=== PATIENT | female | born 2000 | race American Indian/Alaskan Native ===

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

== ENCOUNTER 2021-03-13 15:42 | Outpatient (CLI) | payer MEDICAID ==
[2021-03-13 16:59] VITALS: BP 121/70
== END 2021-03-13 18:06 | disposition home or self-care (01) ==
LOC: TRG 15:42 → LD 15:42 → TRG 18:06
PROVIDERS: ATTEND Obstetrics & Gynecology
DX: Z34.93 Encounter for supervision of normal pregnancy, unspecified, third trimester (principal); Z3A.38 38 weeks gestation of pregnancy
CPT/HCPCS: 59025; Q0177

== ENCOUNTER 2021-03-17 02:55 | Outpatient (CLI) | payer MEDICAID ==
[2021-03-17 03:14] VITALS: BP 111/66
== END 2021-03-17 04:45 | disposition home or self-care (01) ==
LOC: TRG 02:55 → APU 02:56 → TRG 04:45
PROVIDERS: ATTEND Obstetrics & Gynecology
DX: Z34.93 Encounter for supervision of normal pregnancy, unspecified, third trimester (principal); Z3A.39 39 weeks gestation of pregnancy
CPT/HCPCS: 36415; 59025; 84112; Q0177

== ENCOUNTER 2021-04-06 15:57 | Inpatient (IN) | payer MEDICAID ==
[2021-04-06] MEDS ORDERED: ePHEDrine SULFATE 50 MG/1 ML INJ IV PRN (16:53)
[2021-04-06] MEDS ORDERED: CARBOPROST TROMETHAMINE 250 MCG/1 ML INJ IM PRN (16:53)
[2021-04-06] MEDS ORDERED: LIDOCAINE (2%) 20 MG/1 ML VIAL 20 ML MDV INFILTRATI ONE (16:53)
[2021-04-06] MEDS ORDERED: MINERAL OIL 30 ML ORAL LIQD PO PRN (16:53)
[2021-04-06] MEDS ORDERED: ONDANSETRON 4 MG/2 ML INJ IV PRN ×3 (16:53→21:58)
[2021-04-06] MEDS ORDERED: LOPERAMIDE 2 MG CAP PO PRN (16:53)
[2021-04-06] MEDS ORDERED: METHYLERGONOVINE MALEATE 0.2 MG/ML VIAL IM PRN (16:53)
[2021-04-06] MEDS ORDERED: TERBUTALINE 1 MG/1 ML INJ SUB-Q PRN (16:53)
[2021-04-06] MEDS ORDERED: miSOPROStol 200 MCG TAB PR PRN (16:53)
[2021-04-06] MEDS ORDERED: OXYTOCIN 10 UNIT/1 ML INJ IM PRN (16:53)
[2021-04-06] MEDS ORDERED: LACTATED RINGERS 1,000 ML IV SCH ×2 (17:00→18:30)
[2021-04-06] MEDS ORDERED: OXYTOCIN DRIP 30 UNITS/500 ML BAG IV SCH ×4 (17:00→21:58)
[2021-04-06 17:22] LABS: Hematocrit 35.5 % (30.3-42.9); Hemoglobin 11.9 gm/dl (10.1-14.3); Mean Corpuscular HGB Conc 34 % (30-34); Mean Corpuscular Volume 76 fl (79-97); Platelet Count 196 K/mm3 (140-440); Red Blood Count 4.69 M/mm3 (3.65-5.03)
--- NOTE | 2021-04-06 17:27 | History and Physical Report ---
History of Present Illness Date of examination: 04/06/21 Date of admission: 04/06/21 @170 Chief complaint: contractions History of present illness: Pt @ 39.3 weeks EGA presents to triage with c/o contractions that started around noon. Pt reports ctx q5mins since then; denies LOF and VB. Reports +FM. Pt received care with our office. Records reviewed; Pt with +trich result in office on 03/06/21 and reports she took treatment at time as prescribed. Reports H/O sickle cell trait and Rh negative status. Pt reports receiving rhogam as appropriate in . EDC Confirmation: 04/10/2021 Past History : 1 Term Births: 0 Premature Births: 0 Living Children: 0 Para: 0 Mult. Births: 0 Prev : 0 Aborta: 0 Elect. Ab: 0 Spont. Ab: 0 Ectopics: 0 Past Medical History: Reviewed history and no changes required: Sickle cell trait Past Surgical History: Reviewed history and no changes required: negative Past Medical History Anesthesia Complications: negative Anemia: negative Autoimmune Disorder: negative Bleeding Disorder: negative Blood Transfusions: negative Breast Disease: negative Diabetes: negative Heart Disease: negative Hypertension: negative Hepatitis/Liver Disease: negative Kidney Disease/UTI: negative Neurologic/Epilepsy/Migraines: negative Phlebitis/Varicosities: negative Psychiatric: negative Pulmonary Disease/Asthma: negative Thyroid Disease: negative Hospitalizations: negative Surgery (Non-senior brand manager): negative Abnormal PAP: negative PAWAN Exposure: negative Infertility: negative Uterine Anomaly: negative Uterine Surgery (not C/S): negative Other Gynecologic Problems: negative Family Hx: None Infection History Hx of STD: none HIV Risk Eval: no Hepatitis B Risk Eval: low risk Personal hx. of genital herpes: no Partner hx. of genital herpes: no Rash, Viral, or Febrile illness since last LMP? no Varicella/Chicken Pox Status: No TB Risk: no Genetic History Congenital Heart Defect: Mom: no Dad: no Zoila Disease: Mom: no Dad: no Thalassemia Mom: no Dad: no Neural Tube Defect Mom: no Dad: no Down's Syndrome Mom: no Dad: no Arturo-Sachs Mom: no Dad: no Sickle Cell Disease/Trait Mom: yes Dad: no Comments: Mother, patient Hemophilia Mom: no Dad: no Muscular Dystrophy Mom: no Dad: no Cystic Fibrosis Mom: no Dad: no Marlin Chorea Mom: no Dad: no Mental Retardation Mom: no Dad: no Fragile X Mom: no Dad: no Other Genetic/Chromosomal Disorder Mom: no Dad: no Child w/other defect Mom: no Dad: no Enviromental Exposures Enviromental Exposures Reviewed Xray Exposure: no Medication, drug, or alcohol use since LMP: no Chemical/Other Exposure: no Exposure to Cat Liter: no Hx of Parvovirus (Fifth Disease): no Occupational Exposure to Children: none Active Medications: None Current Allergies (reviewed today): No known allergies Past History Past Medical History: other (see HPI) Past Surgical History: other (see HPI) HEALTH CARE RECRUITER History: other (see HPI) Family/Genetic History: other (see HPI) Social history: other (see HPI) - Obstetrical History Expected Date of Delivery: 04/10/21 Actual Gestation: 39 Week(s) 3 Day(s) : 1 Para: 0 Hx # Term Pregnancies: 0 Number of Pregnancies: 0 Spontaneous Abortions: 0 Induced : 0 Number of Living Children: 0 Medications and Allergies Allergies Allergy/AdvReac Type Severity Reaction Status Date / Time No Known Allergies Allergy Verified 12/20/20 13:53 Active Meds: Active Medications Carboprost Tromethamine (Carboprost Tromethamine 250 Mcg/1 Ml Inj) 250 mcg IM ONCE PRN PRN Reason: Uterine Bleeding Ephedrine Sulfate (Ephedrine Sulfate 50 Mg/1 Ml Inj) 10 mg IV Q2M PRN PRN Reason: Hypotension Oxytocin/Sodium Chloride (Pitocin/Ns 30 Unit/500ml) 30 units in 500 mls @ 2 mls/hr IV TITR ALLEN; Protocol Lactated Ringer's (Lactated Ringers) 1,000 mls @ 125 mls/hr IV DIRECT ALLEN Oxytocin/Sodium Chloride (Pitocin/Ns 30 Unit/500ml) 30 units in 500 mls @ 40 mls/hr IV TITR ALLEN; Protocol Penicillin G Potassium 5 mil. (units/ Sodium Chloride) 50 mls @ 100 mls/hr IV ONCE ONE; Protocol Stop: 04/06/21 17:22 Penicillin G Potassium 2.5 mil (.units/ Sodium Chloride) 50 mls @ 100 mls/hr IV Q4H ALLEN; Protocol Lidocaine (Lidocaine (2%) 20 Mg/1 Ml Vial 20 Ml Mdv) 20 ml INFILTRATI ONCE ONE Stop: 04/06/21 16:54 Loperamide HCl (Loperamide 2 Mg Cap) 2 mg PO ONCE PRN PRN Reason: give with Hemabate Methylergonovine Maleate (Methylergonovine Maleate 0.2 Mg/Ml Vial) 0.2 mg IM ONCE PRN PRN Reason: Uterine Bleeding Mineral Oil (Mineral Oil 30 Ml Oral Liqd) 30 ml PO QHS PRN PRN Reason: Constipation Misoprostol (Misoprostol 200 Mcg Tab) [address] ONCE PRN PRN Reason: Uterine Bleeding Ondansetron HCl (Ondansetron 4 Mg/2 Ml Inj) 4 mg IV Q8H PRN PRN Reason: Nausea And Vomiting Oxytocin (Oxytocin 10 Unit/1 Ml Inj) 10 unit IM ONCE PRN PRN Reason: Uterine Bleeding Terbutaline Sulfate (Terbutaline 1 Mg/1 Ml Inj) 0.25 mg SUB-Q ONCE PRN PRN Reason: Hyperstimulation/Hypertonicity Review of Systems All systems: negative Genitourinary: contractions - Vital Signs Vital signs: Vital Signs Pulse Pulse Ox 108 H 97 04/06/21 16:20 04/06/21 16:20 Temp Pulse Resp BP Pulse Ox 98.2 F 120 H 20 126/60 99 04/06/21 16:23 04/06/21 17:00 04/06/21 16:23 04/06/21 16:52 04/06/21 17:00 - Physical Exam Breasts: Positive: deferred Cardiovascular: Regular rate Lungs: Positive: Normal air movement Abdomen: Positive: normal appearance, soft Genitourinary (Female): Positive: normal external genitalia, normal perenium Vulva: both: normal Vagina: Positive: normal moisture Uterus: Positive: normal size, normal contour Anus/Rectum: Positive: normal perianal skin Extremities: Positive: normal - Obstetrical FHR: category 2 Uterine Contraction Monitor Mode: External Uterine Contraction Pattern: Regular Uterine Tone Measurement Phase: Contraction Uterine Contraction Intensity: Moderate Results All other labs normal. Patient: JAY BENITES ID: [id number] Note: All result statuses are Final unless otherwise noted. Tests: (1) Profile I ([id number]) Order Note: Clinical Information: SRC:UR HBsAg Screen Negative Negative *1 RPR Non Reactive Non Reactive *2 Rubella Antibodies, IgG 11.50 index Immune >0.99 *3 Non-immune <0.90 Equivocal 0.90 - 0.99 Immune >0.99 ABO Grouping B *4 Rh Factor Negative *5 Please note: Prior records for this patient's ABO / Rh type are not available for additional verification. Antibody Screen Negative Negative *6 WBC 7.6 x10E3/uL 3.4-10.8 *7 RBC [L] 3.74 x10E6/uL 3.77-5.28 *8 Hemoglobin [L] 8.7 g/dL 11.1-15.9 *9 Hematocrit [L] 27.8 % 34.0-46.6 *10 MCV [L] 74 fL 79-97 *11 MCH [L] 23.3 pg 26.6-33.0 *12 MCHC [L] 31.3 g/dL 31.5-35.7 *13 RDW [H] 20.0 % 11.7-15.4 *14 Platelets 194 x10E3/uL 150-450 *15 Neutrophils 75 % Not Estab. *16 Lymphs 16 % Not Estab. *17 Monocytes 8 % Not Estab. *18 Eos 0 % Not Estab. *19 Basos 0 % Not Estab. *20 ! Immature Cells <No Reported Value> *21 Neutrophils (Absolute) 5.7 x10E3/uL 1.4-7.0 *22 Lymphs (Absolute) 1.2 x10E3/uL 0.7-3.1 *23 Monocytes(Absolute) 0.6 x10E3/uL 0.1-0.9 *24 Eos (Absolute) 0.0 x10E3/uL 0.0-0.4 *25 Baso (Absolute) 0.0 x10E3/uL 0.0-0.2 *26 ! Immature Granulocytes 1 % Not Estab. *27 ! Immature Grans (Abs) 0.0 x10E3/uL 0.0-0.1 *28 ! NRBC <No Reported Value> *29 Hematology Comments: <No Reported Value> *30 Tests: (2) AFP Tetra ([id number]) ! Results Report *31 ! Test Results: *Screen Negative* *32 ! Gest. Age on Collection Date 16.9 WEEKS *33 ! Gestat. Age Based On Ultrasound *34 16.9 on 10/30/2020 ! M[age] *35 ! Race Black *36 ! Weight 148 lbs *37 ! Insulin Dep Diabetes No *38 ! Multiple Gestation No *39 ! AFP Value 67.5 ng/mL *40 ! AFP MoM 1.62 *41 ! hCG Value 89395 mIU/mL *42 ! hCG MoM 0.47 *43 ! uE3 Value 1.32 ng/mL *44 ! uE3 MoM 1.13 *45 ! DANICA Value 185.90 pg/mL *46 ! DANICA MoM 1.13 *47 ! OSBR Risk 1 IN 3989 *48 ! DSR (Second Trimester) 1 [place] [address] *49 ! DSR (By Age) 1 IN 1169 *50 ! T18 Risk Not increased *51 ! T18 (By Age) 1:4553 *52 ! Interpretation NL42 *53 Interpretation: Screen Negative This result is screen negative for OSB, Down Syndrome and Trisomy 18. The AFP MoM and patient specific risks calculated are based on the gestational age and the clinical information provided. This test can identify up to 80% of open neural tube defects. Closed neural tube defects and some open defects may not be detected by this test. The combination of maternal age, AFP, hCG, uE3, and DANICA identifies 75-80% of Down Syndrome. The combination of maternal age, AFP, hCG and uE3 identifies 60% of Trisomy 18 pregnancies. The [place] recommends amniocentesis be offered to women age 35 and older. Recalculations are not recommended when gestational dating by LMP and ultrasound are within 10 days. ! Comments: [facility] *54 Yadira Cox, Ph.D., [facility] Director References: Available Upon Request. Multiples Of Median Cutoffs Abbreviation Definitions For AFP Elevations IDD- Insulin Dep Diabetes Nevarez 2.5 Black 2.8 OSBR- Open Spina Bifida IDD 2.0 Twins 4.5 Risk DSR Cutoff 1:270 DSR- Down Syndrome Risk T18 Cutoff 1:100 T18- Trisomy 18 Down Syndrome and Trisomy 18 screening are considered Investigational For further inquiries contact [employer] at [phone]. Tests: (3) HIV Ag/Ab with Reflex ([id number]) HIV Screen 4th Generation wRfx Non Reactive Non Reactive *55 Tests: (4) Varicella-Zoster V Ab, IgG ([id number]) ! Varicella Zoster IgG 1554 index Immune >165 *56 Negative <135 Equivocal 135 - 165 Positive >165 A positive result generally indicates exposure to the pathogen or administration of specific immunoglobulins, but it is not indication of active infection or stage of disease. Tests: (5) Varicella-Zoster Ab, IgM ([id number]) ! Varicella-Zoster Ab, IgM <0.91 index 0.00-0.90 *57 Negative <0.91 Borderline 0.91 - 1.09 Positive >1.09 Tests: (6) HCV Ab w/Rflx to Verification ([id number]) ! HCV Ab <0.1 s/co ratio 0.0-0.9 *58 Tests: (7) Comment: ([id number]) ! Comment: [facility] *59 Non reactive HCV antibody screen is consistent with no HCV infection, unless recent infection is suspected or other evidence exists to indicate HCV infection. Effective December 09, 2020 HCV Ab w/Rflx to Verification will be made non-orderable. [facility] offers order code [id number] HCV Antibody reflex to KATHY. Tests: (8) Urine Culture, Routine ([id number]) Urine Culture, Routine Final report *60 Tests: (9) Result ([id number]) ! Result 1 No growth *[address] Lawrence made aware, FHT's with decelerations; CAT 2 with moderate variability. SVE 3cm/30%/-4 intact BOW. Orders placed for admission to labor and delivery unit. - Patient Problems (1) Positive GBS test Current Visit: Yes Status: Acute Plan to address problem: GBS treatment ordered per protocol (2) Active labor at term Current Visit: Yes Status: Acute Plan to address problem: continuous monitoring pt may have epidural PRN anticipate (3) 39 weeks gestation of Current Visit: Yes Status: Acute (4) Rh negative status during Current Visit: Yes Status: Acute Plan to address problem: will order cord blood sample testing and rhogam administration PP (5) Sickle cell trait Current Visit: Yes Status: Acute
[2021-04-06 17:28] LABS: Red Cell Distribution Width 21.2 % (13.2-15.2)
[2021-04-06] MEDS ORDERED: PENICILLIN G POTASSIUM 5 MIL.UNITS in SODIUM CHLORIDE 0.9% 50 ML IV ONE (18:00)
[2021-04-06] MEDS ORDERED: KETOROLAC 30 MG/1 ML INJ ONE (18:01)
[2021-04-06] MEDS ORDERED: ONDANSETRON 4 MG/2 ML INJ ONE (18:01)
[2021-04-06] MEDS ORDERED: dexAMETHasone 20 MG/5 ML VIAL ONE (18:01)
[2021-04-06] MEDS ORDERED: BUPIVACAINE/PF (0.5%) 5 MG/1 ML 30 ML VIAL INFILTRATI ONE (18:01)
[2021-04-06] MEDS ORDERED: PROMETHAZINE 25 MG TAB PO PRN (18:15)
[2021-04-06] MEDS ORDERED: PROMETHAZINE 25 MG RECT SUPP PR PRN (18:15)
[2021-04-06] MEDS ORDERED: NalbUPHINE 10 MG/1 ML INJ IV PRN (18:15)
[2021-04-06] MEDS ORDERED: HYDROmorphone 1 MG/1 ML INJ IV PRN (18:15)
[2021-04-06] MEDS ORDERED: diphenhydrAMINE 50 MG/ML VIAL IV PRN (18:15)
[2021-04-06] MEDS ORDERED: NALOXONE 0.4 MG/1 ML INJ IV PRN ×2 (18:15→21:58)
--- NOTE | 2021-04-06 18:15 | Anesthesia Consultation ---
Anesthesia Consult and Med Hx Date of service: 04/06/21 - Airway Anesthetic Teeth Evaluation: Good ROM Head & Neck: Adequate Mental/Hyoid Distance: Adequate Mallampati Class: Class II Intubation Access Assessment: Probably Good - Pulmonary Exam CTA: Yes - Cardiac Exam Cardiac Exam: RRR - Pre-Operative Health Status ASA Pre-Surgery Classification: ASA2 Proposed Anesthetic Plan: Spinal Nerve Block: TAP - Pulmonary Hx Smoking: No Hx Asthma: No Hx Sleep Apnea: No - Cardiovascular System Hx Hypertension: No Hx Heart Attack/AMI: No Hx Angina: No - Central Nervous System Hx Seizures: No Hx Psychiatric Problems: No - Gastrointestinal Hx Gastroesophageal Reflux Disease: No - Endocrine Hx Renal Disease: No Hx Liver Disease: No Hx Insulin Dependent Diabetes: No Hx Non-Insulin Dependent Diabetes: No Hx Hypothyroidism: No Hx Hyperthyroidism: No - Hematic Hx Anemia: No Hx Sickle Cell Disease: Yes (Trait) - Other Systems Hx Alcohol Use: No
--- NOTE | 2021-04-06 18:15 | Anesthesia Day of Surgery ---
Anesthesia Day of Surgery - Day of Surgery Patient Examined: Yes Patient H&P Reviewed: Yes Patient is NPO: Yes Beta Blockers: No Cardiac Clearance: No Pulmonary Clearance: No [place]'s Test: N/A
[2021-04-06] MEDS ORDERED: BICITRA ORAL LIQD 30ML ONE (18:21)
[2021-04-06] MEDS ORDERED: FAMOTIDINE 20 MG/2 ML INJ IV ONE ×2 (18:22→18:25)
[2021-04-06] MEDS ORDERED: ceFAZolin/Water 2 GM/20 ML 2 GM/20 ML SYRINGE IV ONE (18:22)
[2021-04-06] MEDS ORDERED: METOCLOPRAMIDE 10 MG/2 ML INJ ONE (18:22)
[2021-04-06] MEDS ORDERED: METOCLOPRAMIDE 10 MG/2 ML INJ IV ONE (18:25)
--- NOTE | 2021-04-06 18:36 | Progress Note ---
Assessment and Plan - Patient Problems (1) 39 weeks gestation of Current Visit: Yes Status: Acute (2) Active labor at term Current Visit: Yes Status: Acute (3) Positive GBS test Current Visit: Yes Status: Acute (4) Rh negative status during Current Visit: Yes Status: Acute (5) Sickle cell trait Current Visit: Yes Status: Acute (6) Non-reassuring electronic monitoring tracing Current Visit: Yes Status: Acute Plan to address problem: Per RN repetitive late decels remote for delivery and minimal contractions. Diagnosis explained, LEIF vs c/s discussed. Risk associated with delivery were discussed, including but not limited to, bleeding that may require blood transfusion, infection that may be life threatening, injury to adjacent organs specifically bowel or bladder that may require further surgeries, or major vascular injury. She was also informed that when she has had a delivery she may require repeat deliveries for all subsequent pregnancies. She was informed with LEIF baby may develop brain damage if she continues to LEIF and lates persists. Questions were encouraged and answered. Patient voiced understanding and desires to proceed with delivery. Consents were reviewed and signed Subjective - Subjective Date of service: 04/06/21 Patient reports: no new complaints Objective - Vital Signs Vital Signs: Vital Signs - 12hr 04/06/21 04/06/21 04/06/21 16:20 16:21 16:23 Temperature 98.2 F Pulse Rate 108 H 111 H Respiratory 20 Rate Blood Pressure 133/83 Blood Pressure [Left] O2 Sat by Pulse 97 Oximetry 04/06/21 04/06/21 04/06/21 16:25 16:30 16:35 Temperature Pulse Rate 108 H 107 H 157 H Respiratory Rate Blood Pressure Blood Pressure [Left] O2 Sat by Pulse 98 97 99 Oximetry 04/06/21 04/06/21 04/06/21 16:40 16:45 16:50 Temperature Pulse Rate 109 H 113 H 120 H Respiratory Rate Blood Pressure Blood Pressure [Left] O2 Sat by Pulse 97 95 97 Oximetry 04/06/21 04/06/21 04/06/21 16:52 16:55 17:00 Temperature Pulse Rate 109 H 67 120 H Respiratory Rate Blood Pressure 126/60 Blood Pressure [Left] O2 Sat by Pulse 93 99 Oximetry 04/06/21 04/06/21 04/06/21 17:05 17:07 17:10 Temperature Pulse Rate 115 H 111 H 113 H Respiratory Rate Blood Pressure Blood Pressure [Left] O2 Sat by Pulse 98 93 100 Oximetry 04/06/21 04/06/21 04/06/21 17:15 17:36 17:37 Temperature Pulse Rate 104 H 110 H 107 H Respiratory Rate Blood Pressure 114/71 Blood Pressure [Left] O2 Sat by Pulse 97 96 Oximetry 04/06/21 04/06/21 04/06/21 17:39 17:41 17:42 Temperature 97.9 F Pulse Rate 111 H 107 H 111 H Respiratory 15 Rate Blood Pressure Blood Pressure 114/71 [Left] O2 Sat by Pulse 93 96 95 Oximetry 04/06/21 04/06/21 04/06/21 17:46 17:51 17:56 Temperature Pulse Rate 107 H 99 H 97 H Respiratory Rate Blood Pressure Blood Pressure [Left] O2 Sat by Pulse 98 97 99 Oximetry 04/06/21 04/06/21 04/06/21 18:01 18:05 18:06 Temperature Pulse Rate 101 H 103 H 100 H Respiratory Rate Blood Pressure Blood Pressure [Left] O2 Sat by Pulse 100 86 100 Oximetry 04/06/21 04/06/21 04/06/21 18:11 18:14 18:16 Temperature Pulse Rate 98 H 153 H 103 H Respiratory Rate Blood Pressure Blood Pressure [Left] O2 Sat by Pulse 99 66 L 98 Oximetry 04/06/21 04/06/21 18:20 18:21 Temperature Pulse Rate 96 H 104 H Respiratory Rate Blood Pressure Blood Pressure [Left] O2 Sat by Pulse 90 97 Oximetry - Labs Labs: Abnormal Labs 04/06/21 16:45 WBC 11.5 H MCV 76 L MCH 25 L RDW 21.2 H Laboratory Results - last 24 hr 04/06/21 04/06/21 16:45 16:45 WBC 11.5 H RBC 4.69 Hgb 11.9 Hct 35.5 MCV 76 L MCH 25 L MCHC 34 RDW 21.2 H Plt Count 196 Syphilis IgG Antibody Nonreactive
[2021-04-06] MEDS ORDERED: PHENYLEPHRINE/NS 1,000 MCG/10 ML SYRINGE (OR USE) IV ONE (19:10)
[2021-04-06] MEDS ORDERED: BICITRA ORAL LIQD 30ML PO ONE (19:25)
--- NOTE | 2021-04-06 19:43 | Operative Report ---
Operative Report Operative Report: Date of operation: 04/06/2021 Pre-operative diagnosis: 1. 38 weeks gestational age 2. Active labor 3. Nonreassuring heart rate tracing 4. BMI 28.7 kg/m 5. Rh- 6. Positive sickle cell trait 7. GBS positive Post-operative diagnosis: 1. 38 weeks gestational age 2. Active labor 3. Nonreassuring heart rate tracing 4. BMI 28.7 kg/m 5. Rh- 6. Positive sickle cell trait 7. GBS positive 8. Meconium stained fluid Procedure name(s): Primary low transverse uterine incision with vacuu m assistance. Surgeon: Roselia Lawrence MD Casting Machine Adjuster: Ambreen Carmen CNM Anesthesia: Spinal EBL: 500 mL Urine output: 150 mL of clear urine out at the end of the procedure Fluids: 700 mL Findings: Liveborn male weight 6 Lbs. 14 oz. Apgars of 6 and 8 at one and 5 minutes Indications: [] Procedure: Patient was taking to the operating room. Spinal anesthesia was placed. Patient was then prepped and draped in the usual sterile fashion Timeout was performed. Once an appropriate level of anesthesia was noted, a Pfannenstiel incision was made and extended the fascia which was incised and extended lateral direction. The overlying fascia was sharply dissected away from the underlying rectus muscles in the superior inferior direction. The midline was entered bluntly. Bladder blade was placed. Vesicouterine fold was incised with blunt dissection bladder flap was created. A transverse incision was made in the lower uterine segment and extended superolateral direction with finger fractionation. Meconium thick fluid was noted. Infant was delivered from the cephalic asynclitic position, with 1 application of the vacuum at 50 mm of pressure. Infant grimaced with bulb suction and had excellent tone on the field. Mouth and nose bulb suctioned. Cord was doubly clamped and cut was given to the resuscitation team present. Placenta was delivered. The uterus was exteriorized and cleaned of any further placental tissue and products of conception. Uterine incision was approximated using 0 Vicryl in a running interlocking stitch followed by further suture of 0 Vicryl in an imbricating fashion. When hemostasis was noted the uterus was allowed back in the pelvic cavity. Pelvis was irrigated with warm normal saline. Once he mostasis was noted the rectus muscles were approximated using 0 Vicryl interrupted simple stitches 3. Once hemostasis was noted the fascia was approximated using 0 Vicryl simple running stitch. The incision was irrigated with warm saline, once hemostasis as noted, the subcuticular adipose tissue was reapproximated using 3-0 Vicryl in a simple running fashion. Skin was approximated using 4-0 Vicryl on a Kali needle in a subcuticular manner. Counts were correct x3. Patient tolerated the procedure well, she was taken to recovery room in stable condition.
--- NOTE | 2021-04-06 19:55 | Progress Note ---
Spinal Anesthesia Block - Spinal Anesthesia Block Start Time: 18:32 Stop Time: 18:42 Performed by:: JOSÉ MANUEL MALDONADO Procedure: Spinal anesthesia block is being performed for [C/S]. H&P, labs have been reviewed. Patient's questions and concerns have been answered. Informed consent has been performed. Timeout has was performed. Patient in sitting position on side of bed. Sterile prep and drape was performed. 3 mL 1% lidocaine skin wheal at L [3]-L [4]. Needle introducer advanced. 25-gauge spinal needle advanced, [+] CSF [-] blood. [Marcaine 10mg and Precedex 5mcg] Spinal dose was given. All needles removed. Patient tolerated procedure well.
--- NOTE | 2021-04-06 19:55 | Progress Note ---
Regional Anesthesia Block - Regional Anesthesia Block Start Time: 19:43 Stop Time: 19:50 Performed By:: JOSÉ MANUEL MALDONADO Procedure: Patient consented for TAP block for post surgical pain management. Patient identified, monitors placed, and time out performed. Mid axillary TAP identified bilaterally via ultrasound. Skin prepped bilaterally with [chlorhexidine] and [20g stimuplex] needle advanced to the TAP. 30ml [Marcaine 0.25% with 25mcg Precedex and Decadron 5mg] injected under ultrasound guidance on the [left] side. 30ml [Marcaine 0.25% with 25mcg Precedex and Decadron 5mg] injected under ultrasound guidance on the [right] side. Negative aspiration every 5mL, Patient tolerated the procedure well. No apparent complications seen.
[2021-04-06] MEDS ORDERED: MAGNESIUM HYDROXIDE (MOM) ORAL LIQD UDC PO PRN (21:58)
[2021-04-06] MEDS ORDERED: LANOLIN/ZINC/DIMETHICONE (LANSINOH) 7 GM TP PRN (21:58)
[2021-04-06] MEDS ORDERED: MORPHINE 2 MG/1 ML INJ IV PRN (21:58)
[2021-04-06] MEDS ORDERED: traMADol 50 MG TAB PO PRN (21:58)
[2021-04-06] MEDS ORDERED: SIMETHICONE 80 MG CHEW TAB PO PRN (21:58)
[2021-04-06] MEDS ORDERED: MORPHINE 4 MG/1 ML INJ IV PRN (21:58)
[2021-04-06] MEDS ORDERED: SENNOSIDES 8.6 MG TAB PO PRN (21:58)
[2021-04-06] MEDS ORDERED: WITCH HAZEL/ GLYCERIN PAD TP PRN (21:58)
[2021-04-06] MEDS ORDERED: D5W/LACTATED RINGERS 1,000 ML IV SCH (21:58)
[2021-04-06] MEDS ORDERED: PENICILLIN G POTASSIUM 2.5 MIL.UNITS in SODIUM CHLORIDE 0.9% 50 ML IV SCH (22:00)
[2021-04-06] MEDS ORDERED: ACETAMINOPHEN 500 MG TAB PO PRN (22:30)
[2021-04-07] MEDS: KETOROLAC 30 MG/1 ML INJ IV SCH ×3 (01:00→17:44)
[2021-04-07] MEDS: ceFAZolin/NS 1 GM/50 ML 1 GM/50 ML BAG IV SCH ×2 (01:00→10:31)
[2021-04-07] MEDS ORDERED: TETANUS,DIPH,PERTUSS(ACELL) VACCINE 0.5 ML SYRINGE IM ONE (06:00)
--- NOTE | 2021-04-07 06:55 | Progress Note ---
Assessment and Plan - Patient Problems (1) delivery delivered Onset Date: ~04/07/21 Current Visit: Yes Status: Acute Plan to address problem: Pt 12hr s/p section. VSS Baby in room. Pt's support person present also. Incision D&I H&H pending. Mir to be removed Encouraged OOB to walk NATASHA. Regular diet breakfast. All concerns addressed Possible d/c tomorrow Subjective - Subjective Date of service: 04/07/21 (Pt w/o complaint) Principal diagnosis: Day#1 s/p section Patient reports: voiding normally (clear yellow urine noted in mir bag) : doing well Objective - Vital Signs Latest vital signs: Vital Signs Temp Pulse Resp BP BP Pulse Ox 04/07/21 04:49 18 04/07/21 01:46 97.6 F 65 20 116/67 99 04/07/21 01:30 18 04/07/21 01:00 18 04/06/21 21:26 98.7 F 68 18 116/77 98 04/06/21 20:32 65 14 117/72 98 04/06/21 20:17 65 14 120/71 98 04/06/21 20:02 67 17 117/68 98 04/06/21 19:47 74 16 110/60 98 04/06/21 19:42 78 16 105/47 98 04/06/21 19:37 97.4 F L 81 18 106/46 98 04/06/21 18:21 104 H 97 04/06/21 18:20 96 H 90 04/06/21 18:16 103 H 98 04/06/21 18:14 153 H 66 L 04/06/21 18:11 98 H 99 04/06/21 18:06 100 H 100 04/06/21 18:05 103 H 86 04/06/21 18:01 101 H 100 04/06/21 17:56 97 H 99 04/06/21 17:51 99 H 97 04/06/21 17:46 107 H 98 04/06/21 17:42 97.9 F 111 H 15 114/71 95 04/06/21 17:41 107 H 96 04/06/21 17:39 111 H 93 04/06/21 17:37 107 H 114/71 04/06/21 17:36 110 H 96 04/06/21 17:15 104 H 97 04/06/21 17:10 113 H 100 04/06/21 17:07 111 H 93 04/06/21 17:05 115 H 98 04/06/21 17:00 120 H 99 04/06/21 16:55 67 93 04/06/21 16:52 109 H 126/60 04/06/21 16:50 120 H 97 04/06/21 16:45 113 H 95 04/06/21 16:40 109 H 97 04/06/21 16:35 157 H 99 04/06/21 16:30 107 H 97 04/06/21 16:25 108 H 98 04/06/21 16:23 98.2 F 20 04/06/21 16:21 111 H 133/83 04/06/21 16:20 108 H 97 Intake and Output 04/06/21 04/06/21 04/07/21 14:59 22:59 06:59 Intake Total 800 Output Total 250 Balance 550 Intake: IV 800 Output: Urine 250 Other: Weight 183 lb Estimated Blood Loss 500 Patient Weight 04/07/21 06:59 Weight 183 lb - Exam Breasts: Present: normal Cardiovascular: Present: Regular rate Lungs: Present: Normal air movement Abdomen: Present: normal appearance, soft Uterus: Present: normal, fundal height below umbilicus Extremities: Present: normal Deep Tendon Reflex Grade: Normal +2 Incision: Present: normal, dry, intact - Labs Labs: Abnormal lab results 04/06/21 Range/Units 16:45 WBC 11.5 H (4.5-11.0) K/mm3 MCV 76 L (79-97) fl MCH 25 L (28-32) pg RDW 21.2 H (13.2-15.2) %
[2021-04-07 08:03] LABS: Hematocrit 31.9 % (30.3-42.9); Hemoglobin 10.2 gm/dl (10.1-14.3)
--- NOTE | 2021-04-07 12:50 | Post Anesthesia Evaluation ---
- Post Anesthesia Evaluation Patient Participated: Yes Airway Patent: Yes Stable Respiratory Function: Yes Nausea/Vomiting: No Temp > 96.8F: Yes Pain Manageable: Yes Adequeate Hydration: Yes Anesthesia Complications: No Block Receding Appropriately: Yes Patient on Ventilator: No
[2021-04-07] MEDS: oxyCODONE /ACETAMINOPHEN 5-325MG TAB PO PRN ×2 (14:55→22:53)
[2021-04-07] MEDS ORDERED: IBUPROFEN 800 MG TAB PO PRN (19:31)
[2021-04-08] MEDS: KETOROLAC 30 MG/1 ML INJ IV SCH (04:05)
[2021-04-08] MEDS ORDERED: KETOROLAC 30 MG/1 ML INJ IV SCH (05:10)
--- NOTE | 2021-04-08 06:37 | Discharge Summary ---
Providers - Providers Date of Admission: 04/06/21 15:58 Date of discharge: 04/08/21 (pt desires d/c today) Attending physician: BRAYAN DRUMMOND 04/06/21 21:58 Consult to Toe Trimmer [CONS] Routine Reason For Exam: Primary care physician: BRAYAN DRUMMOND Hospitalization Reason for admission: induction of labor, IUP at term Delivery: (NRFT) Procedure: section, primary low transverse Episiotomy: none Laceration: none Incision: normal, dry, intact Other procedures: none complications: none Discharge diagnosis: IUP at term delivered [place] baby: male Hospital course: IOL complicated by NRFT preceded with primary section uncomplicated Pt awake caring for NB son. Desires d/c today VSS FF below umb lochia scant Incision dry and intact. H&H stable No s/sx of anemia Doing well s/p c/s P: d/c today with instructions RTO 1 week postop care and circ. RX on chart. Pt wishes to start DEPO for BC Condition at discharge: Good Disposition: DC-01 TO HOME OR SELFCARE - Discharge Diagnoses (1) delivery delivered Status: Acute Comment: RTO 1 Week Post-op Care Plan - Discharge Medications Prescriptions: Lidocain2.5%/Prilocai2.5% [Emla] 5 gm TP ONCE #1 tube Ibuprofen [Motrin 800 MG tab] 800 mg PO TID PRN #30 tablet PRN Reason: Pain oxyCODONE /ACETAMINOPHEN [Percocet 5/325 mg] 1 - 2 tab PO Q6HR PRN #14 tablet PRN Reason: Pain - Provider Discharge Summary Activity: routine, no sex for 6 weeks, no heavy lifting 4 weeks, no strenuous exercise Diet: routine Instructions: routine Additional instructions: [] Smoking cessation referral if applicable(refer to patient education folder for contact #) [] Refer to [facility] Booklet Call your doctor immediately for: * Fever > 100.5 * Heavy vaginal bleeding ( >1 pad per hour) * Severe persistent headache * Shortness of breath * Reddened, hot, painful area to leg or breast * Drainage or odor from incision. * Keep incision clean and dry at all times and follow doctor's instructions regarding bathing/showering - Follow up plan Follow up: BRAYAN DRUMMOND MD [Primary Care Provider] - 7 Days (Congratulations! Please call [phone] to schedule your postoperative visit and your son's circumcision in 1 week. Bring the EMLA cream with you to his visit. Do NOT use at home. Take medications as prescribed. Call with any concerns.)
[2021-04-08] MEDS ORDERED: medroxyPROGESTERone ACETATE 150 MG/ML SYRINGE IM ONE ×2 (07:37→11:00)
[2021-04-08] MEDS: oxyCODONE /ACETAMINOPHEN 5-325MG TAB PO PRN (10:22)
[2021-04-08 13:59] VITALS: BP 119/67
== END 2021-04-08 13:40 | disposition home or self-care (01) | DRG 766 ==
LOC: APU 15:57 → TRG 15:57 → APU 15:58 → TRG 17:04 → LD 17:29 → OB 21:26
PROVIDERS: ADMIT Obstetrics & Gynecology; ATTEND Obstetrics & Gynecology
PROC: 10D00Z1 Extraction of Products of Conception, Low, Open Approach (ICD-10-PCS; principal; 2021-04-06)
PROC: 3E0234Z Introduction of Serum, Toxoid and Vaccine into Muscle, Percutaneous Approach (ICD-10-PCS; 2021-04-07)
DX: O76 Abnormality in fetal heart rate and rhythm complicating labor and delivery (principal); Z20.822 Contact with and (suspected) exposure to COVID-19; O36.0990 Maternal care for other rhesus isoimmunization, unspecified trimester, not applicable or unspecified; O99.824 Streptococcus B carrier state complicating childbirth; O99.02 Anemia complicating childbirth; D57.3 Sickle-cell trait; O77.0 Labor and delivery complicated by meconium in amniotic fluid; Z37.0 Single live birth; Z3A.39 39 weeks gestation of pregnancy; Z23 Encounter for immunization
CPT/HCPCS: 36415; 59025; 85014; 85018; 85027; 85461; 86592; 86850; 86900; 86901; 99211; G0378; G0463; J0690; J1050; J1100; J1885; J2270; J2370; J2405; J2765; J2790; J3490; J7121; U0003